=== PATIENT | female | born 1995 | race Caucasian/White ===

== ENCOUNTER 2020-10-01 08:46 | Inpatient (IN) | payer BC ==
[~2020-10-01] VITALS: Ht 157.5 cm; Wt 80.9 kg
[2020-10-01] MEDS ORDERED: NEWBORN KIT ONE (09:18)
[2020-10-01] MEDS ORDERED: LIDOCAINE 1%, 20ML ONE (09:18)
[2020-10-01] MEDS ORDERED: MISOPROSTOL 200 MCG TABLET ONE (09:19)
[2020-10-01] MEDS ORDERED: OXYTOCIN 30U/ 0.9% NaCL 500ML 500 ML ONE (09:19)
[2020-10-01] MEDS ORDERED: PLEASE ENTER HEIGHT AND WEIGHT MC SCH (09:30)
[2020-10-01] MEDS ORDERED: ONDANSETRON 2MG/ML, 2ML IVPush PRN (09:30)
[2020-10-01] MEDS ORDERED: TERBUTALINE 1 MG/ML, 1ML IVPush PRN (09:30)
[2020-10-01] MEDS ORDERED: D5%-LACTATED RINGERS 1,000 ML IV SCH (09:30)
[2020-10-01] MEDS ORDERED: TERBUTALINE 1 MG/ML, 1ML SQ PRN (09:30)
[2020-10-01] MEDS ORDERED: OXYTOCIN 30U/ 0.9% NaCL 500ML 500 ML IV PRN (09:30)
[2020-10-01] MEDS ORDERED: CALCIUM CARBONATE 500 MG TAB.CHEW PO PRN (09:30)
[2020-10-01] MEDS ORDERED: OXYTOCIN 30U/ 0.9% NaCL 500ML 500 ML IV ONE (09:30)
[2020-10-01] MEDS: LACTATED RINGERS 1,000 ML IV SCH ×3 (09:33→20:00)
[2020-10-01] MEDS ORDERED: PENICILLIN GK 5,000,000 UNITS in DEXTROSE 5% 100 ML IVPB ONE (09:41)
[2020-10-01 09:49] LABS: BASOPHILS % (AUTO) 1 % (0-1); EOSINOPHILS % (AUTO) 1 % (1-7); LYMPHOCYTES % (AUTO) 24 % (22-44); MEAN CORPUSCULAR HEMOGLOBIN 26.2 pg (27.0-34.8); MEAN CORPUSCULAR HGB CONC 32.9 g/dL (32.4-35.8); MEAN PLATELET VOLUME 10.5 fL (7.4-10.4); MONOCYTES % (AUTO) 7 % (2-9); NEUTROPHILS % (AUTO) 68 % (42-75); PLATELET COUNT 144 x10^3/uL (130-400); RED BLOOD COUNT 4.33 x10^6/uL (3.82-5.3); RED CELL DISTRIBUTION WIDTH 15.4 % (9.6-15.2)
[2020-10-01 11:36] VITALS: BP 138/87
[2020-10-01] MEDS ORDERED: PREN1TAB10 PO (11:37)
[2020-10-01] MEDS: PENICILLIN GK 2,500,000 UNITS in DEXTROSE 5% 100 ML IVPB SCH ×3 (13:48→21:25)
[2020-10-01 15:58] LABS: AMPHETAMINE SCREEN, URINE Negative (Negative); BARBITURATE SCREEN, URINE Negative (Negative); BENZODIAZEPINE SCREEN, URINE Negative (Negative); CANNABINOID SCREEN, URINE Negative (Negative); COCAINE SCREEN, URINE Negative (Negative); METHADONE SCREEN, URINE Negative (Negative); OPIATE SCREEN, URINE Negative (Negative)
[2020-10-01] MEDS: FENTANYL PF 100 MCG/2ML IVPush PRN (16:17)
[2020-10-01] MEDS ORDERED: BUPIVACAINE 0.25% ONE (16:23)
[2020-10-01] MEDS ORDERED: FENTANYL/BUPIV./NS/PF 250 ML EPIDCONT ONE (16:23)
[2020-10-01] MEDS ORDERED: FENTANYL/BUPIV./NS/PF 250 ML EPIDCONT SCH (16:30)
[2020-10-01] MEDS ORDERED: NALOXONE 0.4 MG/ML, 1ML IVPush PRN (16:30)
[2020-10-01] MEDS ORDERED: LACTATED RINGERS 1,000 ML IVBOLUS PRN (16:30)
[2020-10-02] MEDS: LACTATED RINGERS 1,000 ML IV SCH ×4 (00:43→17:30)
[2020-10-02] MEDS ORDERED: GENTAMICIN 120 MG in SODIUM CHLORIDE 0.9% 100 ML IV ONE (02:30)
[2020-10-02] MEDS ORDERED: AMPICILLIN 2 GM in SODIUM CHLORIDE 0.9% 100 ML IV ONE (02:30)
[2020-10-02] MEDS ORDERED: IBUPROFEN 600 MG TABLET ONE (02:31)
[2020-10-02] MEDS ORDERED: OXYcodone/APAP 5/325MG TABLET ONE (03:36)
[2020-10-02] MEDS ORDERED: SIMETHICONE 80 MG CHEW TAB PO PRN (04:00)
[2020-10-02] MEDS ORDERED: OXYcodone/APAP 5/325MG TABLET PO PRN ×2 (04:00)
[2020-10-02] MEDS: OXYTOCIN 30U/ 0.9% NaCL 500ML 500 ML IV SCH ×2 (04:00→14:00)
[2020-10-02] MEDS ORDERED: ONDANSETRON 2MG/ML, 2ML IV PRN (04:00)
[2020-10-02] MEDS ORDERED: METOCLOPRAMIDE 5 MG/ML, 2ML IV PRN (04:00)
[2020-10-02 05:20] VITALS: BP 108/67
[2020-10-02 07:25] VITALS: BP 123/79
[2020-10-02] MEDS: FENTANYL PF 100 MCG/2ML IVPush PRN ×2 (07:52→07:54)
[2020-10-02] MEDS: PRENATAL VIT/IRON/FA 1 EACH TABLET PO SCH (09:04)
[2020-10-02] MEDS: IBUPROFEN 600 MG TABLET PO PRN ×2 (09:04→16:23)
[2020-10-02] MEDS: DOCUSATE 100 MG CAPSULE PO PRN (09:04)
[2020-10-02 09:35] LABS: BASOPHILS % (AUTO) 0 % (0-1); EOSINOPHILS % (AUTO) 0 % (1-7); LYMPHOCYTES % (AUTO) 10 % (22-44); MEAN CORPUSCULAR HEMOGLOBIN 26.2 pg (27.0-34.8); MEAN CORPUSCULAR HGB CONC 32.9 g/dL (32.4-35.8); MEAN PLATELET VOLUME 11.1 fL (7.4-10.4); MONOCYTES % (AUTO) 5 % (2-9); NEUTROPHILS % (AUTO) 85 % (42-75); PLATELET COUNT 126 x10^3/uL (130-400); RED BLOOD COUNT 3.64 x10^6/uL (3.82-5.3); RED CELL DISTRIBUTION WIDTH 15.7 % (9.6-15.2)
[2020-10-02 12:25] VITALS: BP 107/68
[2020-10-02 16:20] VITALS: BP 121/76
[2020-10-02 19:40] VITALS: BP 120/76
[2020-10-03] MEDS: OXYTOCIN 30U/ 0.9% NaCL 500ML 500 ML IV SCH
[2020-10-03 00:10] VITALS: BP 125/76
[2020-10-03] MEDS: LACTATED RINGERS 1,000 ML IV SCH (01:30)
[2020-10-03 07:23] VITALS: BP 122/78
[2020-10-03] MEDS: IBUPROFEN 600 MG TABLET PO PRN (07:44)
[2020-10-03] MEDS: PRENATAL VIT/IRON/FA 1 EACH TABLET PO SCH (07:44)
[2020-10-03] MEDS: DOCUSATE 100 MG CAPSULE PO PRN (07:44)
[2020-10-03] MEDS ORDERED: DOCU-131 PO ×2 (12:38→12:41)
[2020-10-03] MEDS ORDERED: IBUP-1223 PO (12:44)
== END 2020-10-03 15:00 | disposition home or self-care (01) | DRG 806 ==
LOC: LDOP 08:46 → LDIP 09:26 → 2NW 10-02 05:17
PROVIDERS: ADMIT Obstetrics & Gynecology; ATTEND Obstetrics & Gynecology
PROC: 10E0XZZ Delivery of Products of Conception, External Approach (ICD-10-PCS; principal; 2020-10-02)
PROC: 0W8NXZZ Division of Female Perineum, External Approach (ICD-10-PCS; 2020-10-02)
PROC: 0W8NXZZ Division of Female Perineum, External Approach (ICD-10-PCS; 2020-10-02)
PROC: 3E0R3BZ Introduction of Anesthetic Agent into Spinal Canal, Percutaneous Approach (ICD-10-PCS; 2020-10-02)
PROC: 00HU33Z Insertion of Infusion Device into Spinal Canal, Percutaneous Approach (ICD-10-PCS; 2020-10-02)
DX: O70.1 Second degree perineal laceration during delivery (principal); O71.7 Obstetric hematoma of pelvis; Z37.0 Single live birth; Z3A.39 39 weeks gestation of pregnancy; Z20.822 Contact with and (suspected) exposure to COVID-19
CPT/HCPCS: 36415; 80307; 85025; 86592; 86850; 86900; 87635; G0378; J0290; J2405; J2540; J3010; J1580; J2590; J7120